=== PATIENT | male | born 1950 | race African-American/Black ===

== ENCOUNTER 2024-10-21 17:50 | Inpatient (IN) | payer MEDICARE, OTHER ==
[~2024-10-21] VITALS: Ht 177.8 cm; Wt 78.5 kg
[2024-10-21 18:09] LABS: BASOPHILS # (AUTO) 0.1 K/UL (0.0-0.2); BASOPHILS % (AUTO) 0.7 % (0.0-2.0); EOSINOPHILS # (AUTO) 0.4 K/uL (0.0-0.7); EOSINOPHILS % (AUTO) 5.2 % (0.0-7.0); HEMATOCRIT 42.1 % (36.7-47.1); HEMOGLOBIN 14.1 g/dL (12.5-16.3); LYMPHOCYTES % (AUTO) 24.5 % (20.5-51.5); MEAN CORPUSCULAR HEMOGLOBIN 31.8 uug (23.8-33.4); MEAN CORPUSCULAR HGB CONC 34 g/dL (32.5-36.3); MEAN CORPUSCULAR VOLUME 94.6 fL (73.0-96.2); MONOCYTES # (AUTO) 0.7 K/uL (0.1-1.30); MONOCYTES % (AUTO) 9.4 % (0.0-11.0); NEUTROPHILS # (AUTO) 4.8 K/uL (1.8-8.9); NEUTROPHILS % (AUTO) 60.2 % (38.5-71.5); PLATELET COUNT (AUTO) 276 K/uL (152-348); RED BLOOD CELL COUNT(AUTO) 4.45 MIL/uL (4.06-5.63); RED CELL DISTRIBUTION WIDTH 12.9 % (12.1-16.2)
[2024-10-21] MEDS ORDERED: SENN1TAB59 PO (18:09)
[2024-10-21] MEDS ORDERED: SERT-439 PO (18:09)
[2024-10-21] MEDS ORDERED: TAMS-3 PO (18:09)
[2024-10-21] MEDS ORDERED: MEMA10TA PO (18:09)
[2024-10-21 18:12] LABS: DIFFERENTIAL COMMENT 1
[2024-10-21 18:15] LABS: CALCIUM 9.8 mg/dL (8.5-10.1); CARBON DIOXIDE 25 mmol/L (21-32); CHLORIDE 109 mmol/L (98-107); CREATININE 1.2 mg/dL (0.6-1.3); GLUCOSE 80 mg/dL (74-106); POTASSIUM 4.1 mmol/L (3.5-5.1); SODIUM SERUM 146 mmol/L (136-145); UREA NITROGEN, BLOOD 22 mg/dL (7-18)
[2024-10-21 18:20] LABS: ACETAMINOPHEN < 2.0 ug/mL (10-30); ALANINE AMINOTRANSFERASE 62 U/L (16-63); ALBUMIN 3.8 g/dL (3.4-5.0); ALKALINE PHOSPHATASE 77 U/L (50-136); ASPARTATE AMINOTRANSFERASE 37 U/L (15-37); BILIRUBIN,DIRECT 0.1 mg/dL (0.0-0.2); BILIRUBIN,TOTAL 0.5 mg/dL (0.2-1.0); TOTAL PROTEIN, SERUM 7.7 g/dL (6.4-8.2)
[2024-10-21 18:25] LABS: ETHANOL < 3 MG/DL (0-10)
[2024-10-21] MEDS: OLANZAPINE 10 MG VIAL IM ONE (18:30)
[2024-10-21] MEDS ORDERED: MULT-213 PO (21:36)
[2024-10-21] MEDS ORDERED: LORA0.5T48 PO (21:36)
[2024-10-21] MEDS ORDERED: SENN8.6T19 PO (21:36)
[2024-10-21] MEDS ORDERED: FINA5TAB3 PO (21:36)
[2024-10-21 21:45] VITALS: BP 125/84; TEMP 97.8; O2SAT 97
[2024-10-21] MEDS ORDERED: MAGNESIUM HYDROXIDE 30 ML LIQUID UDC PO PRN (21:45)
[2024-10-21] MEDS ORDERED: MAG HYDROX/AL HYDROX/SIMETH 30 ML LIQUID UDC PO PRN (21:45)
[2024-10-22 08:03] VITALS: BP 137/96; TEMP 98.4; O2SAT 98
[2024-10-22] MEDS: SENNOSIDES/DOCUSATE SODIUM TABLET PO SCH (09:00)
[2024-10-22] MEDS: MULTIVITAMINS,THERAPEUTIC TABLET PO SCH (09:23)
[2024-10-22] MEDS: SENNOSIDES 1 TABLET PO SCH (09:23)
[2024-10-22] MEDS: MEMANTINE HCL 10 MG TABLET PO SCH (09:24)
[2024-10-22] MEDS: LORAZEPAM 1 MG TABLET PO PRN (16:14)
[2024-10-22 16:26] VITALS: BP 91/62; TEMP 98; O2SAT 100
[2024-10-22] MEDS: FINASTERIDE 5 MG TABLET PO SCH (18:00)
[2024-10-22 20:00] VITALS: BP 89/53; O2SAT 93
[2024-10-22] MEDS: TAMSULOSIN HCL 0.4 MG CAP.SR.24H PO SCH (21:20)
[2024-10-22] MEDS: TEMAZEPAM 7.5 MG CAPSULE PO PRN (21:20)
[2024-10-23 08:09] VITALS: BP 122/76; TEMP 98; O2SAT 98
[2024-10-23] MEDS ORDERED: risperiDONE 0.5 MG TABLET PO SCH (09:00)
[2024-10-23] MEDS: risperiDONE 1 MG TABLET PO SCH (09:24)
[2024-10-23] MEDS: SERTRALINE HCL 50 MG TABLET PO SCH (09:24)
[2024-10-23 15:29] VITALS: BP 102/66; TEMP 98; O2SAT 98
[2024-10-23 20:00] VITALS: BP 97/51; TEMP 98; O2SAT 98
[2024-10-23] MEDS: SENNOSIDES 1 TABLET PO SCH (20:34)
[2024-10-24 09:18] VITALS: BP 125/78; TEMP 98.6; O2SAT 99
[2024-10-24 17:05] VITALS: BP 96/59; TEMP 98.2; O2SAT 100
[2024-10-24 20:00] VITALS: BP 105/65; TEMP 98.3; O2SAT 97
[2024-10-25 11:02] VITALS: BP 119/54; TEMP 98; O2SAT 98
[2024-10-25 15:32] VITALS: BP 130/84; TEMP 98; O2SAT 98
[2024-10-25 19:48] VITALS: BP 132/69; TEMP 98.6; O2SAT 97
[2024-10-26 08:24] VITALS: BP 144/89; TEMP 98; O2SAT 98
[2024-10-26 15:04] VITALS: BP 120/69; TEMP 98; O2SAT 98
[2024-10-26 20:15] VITALS: BP 128/69; TEMP 98.2; O2SAT 100
[2024-10-27 08:17] VITALS: TEMP 97.6
[2024-10-27 20:00] VITALS: BP 100/76; TEMP 97.6; O2SAT 93
[2024-10-27] MEDS: TEMAZEPAM 7.5 MG CAPSULE PO PRN (20:15)
[2024-10-28 08:24] VITALS: BP 138/61; TEMP 98.1; O2SAT 98
[2024-10-28 17:16] VITALS: BP 142/81; TEMP 98.1; O2SAT 98
[2024-10-28 19:46] VITALS: BP 107/65; TEMP 97.9; O2SAT 96
[2024-10-28] MEDS: LORAZEPAM 1 MG TABLET PO PRN (20:36)
[2024-10-29 07:28] LABS: BASOPHILS # (AUTO) 0.1 K/UL (0.0-0.2); EOSINOPHILS # (AUTO) 0.4 K/uL (0.0-0.7); EOSINOPHILS % (AUTO) 6.3 % (0.0-7.0); HEMATOCRIT 38.8 % (36.7-47.1); HEMOGLOBIN 13.6 g/dL (12.5-16.3); LYMPHOCYTES # (AUTO) 1.5 K/uL (0.8-4.8); LYMPHOCYTES % (AUTO) 26.7 % (20.5-51.5); MEAN CORPUSCULAR HEMOGLOBIN 32.9 uug (23.8-33.4); MEAN CORPUSCULAR HGB CONC 35 g/dL (32.5-36.3); MEAN CORPUSCULAR VOLUME 93.9 fL (73.0-96.2); MONOCYTES # (AUTO) 0.6 K/uL (0.1-1.30); MONOCYTES % (AUTO) 11.1 % (0.0-11.0); NEUTROPHILS # (AUTO) 3.1 K/uL (1.8-8.9); NEUTROPHILS % (AUTO) 54.9 % (38.5-71.5); PLATELET COUNT (AUTO) 221 K/uL (152-348); RED BLOOD CELL COUNT(AUTO) 4.13 MIL/uL (4.06-5.63); RED CELL DISTRIBUTION WIDTH 12.8 % (12.1-16.2); WHITE BLOOD COUNT (AUTO) 5.7 K/uL (3.6-10.2)
[2024-10-29 08:15] LABS: ALANINE AMINOTRANSFERASE 50 U/L (16-63); ALBUMIN 3.4 g/dL (3.4-5.0); ALKALINE PHOSPHATASE 63 U/L (50-136); ASPARTATE AMINOTRANSFERASE 29 U/L (15-37); BILIRUBIN,TOTAL 0.8 mg/dL (0.2-1.0); CARBON DIOXIDE 25 mmol/L (21-32); CHLORIDE 105 mmol/L (98-107); CREATININE 1.1 mg/dL (0.6-1.3); GLUCOSE 88 mg/dL (74-106); MAGNESIUM 1.9 mg/dL (1.8-2.4); POTASSIUM 4.2 mmol/L (3.5-5.1); SODIUM SERUM 140 mmol/L (136-145); TOTAL PROTEIN, SERUM 7.4 g/dL (6.4-8.2); UREA NITROGEN, BLOOD 21 mg/dL (7-18)
[2024-10-29 08:18] VITALS: BP 112/49; TEMP 98.2; O2SAT 98
[2024-10-29 08:58] LABS: THYROID STIMULATING HORMONE 2.536 mIU/mL (0.358-3.740)
[2024-10-29] MEDS: SERTRALINE HCL 50 MG TABLET PO SCH (09:26)
[2024-10-29 16:08] VITALS: BP 119/52; TEMP 98; O2SAT 98
[2024-10-29 20:00] VITALS: BP 94/48; TEMP 98.8; O2SAT 97
[2024-10-29 20:34] VITALS: BP 121/62
[2024-10-30 08:02] VITALS: BP 105/84; TEMP 98.2; O2SAT 100
[2024-10-30 15:41] VITALS: BP 114/62; TEMP 98; O2SAT 100
[2024-10-30 20:00] VITALS: BP 120/76; TEMP 98.1; O2SAT 97
[2024-10-31 08:20] VITALS: BP 140/61; TEMP 98.3; O2SAT 98
[2024-10-31 16:20] VITALS: BP 125/61; TEMP 98.2; O2SAT 100
[2024-10-31 19:43] VITALS: BP 137/66; TEMP 98.2; O2SAT 97
[2024-10-31] MEDS: ATORVASTATIN 10 MG TABLET PO SCH (21:10)
[2024-11-01 08:56] VITALS: BP 141/68; TEMP 98.3; O2SAT 98
[2024-11-01 16:14] VITALS: BP 99/50; TEMP 98.1; O2SAT 97
[2024-11-01 20:00] VITALS: BP 120/80
[2024-11-02 08:24] VITALS: BP 148/55; TEMP 98; O2SAT 98
[2024-11-02 16:24] VITALS: BP 106/60; TEMP 98.2; O2SAT 97
[2024-11-02] MEDS: ACETAMINOPHEN 325 MG TABLET PO PRN (16:54)
[2024-11-02 20:00] VITALS: BP 101/78; TEMP 95; O2SAT 99
[2024-11-03 08:00] VITALS: BP 99/63; TEMP 97.8; O2SAT 98
[2024-11-03 16:00] VITALS: BP 116/72; TEMP 97.6; O2SAT 97
[2024-11-03 20:23] VITALS: BP 112/66; TEMP 98; O2SAT 96
[2024-11-04 08:00] VITALS: BP 125/48; TEMP 97.6; O2SAT 98
[2024-11-04] MEDS: risperiDONE 1 MG TABLET PO SCH (08:35)
[2024-11-04] MEDS ORDERED: risperiDONE 1 MG TABLET PO SCH (17:00)
== END 2024-11-04 15:15 | DRG 885 ==
LOC: ER 17:50 → GPS 21:27
PROVIDERS: ADMIT Psychiatry & Neurology Psychiatry; ATTEND Internal Medicine
DX: F20.0 Paranoid schizophrenia (principal); F03.911 Unspecified dementia, unspecified severity, with agitation; F03.93 Unspecified dementia, unspecified severity, with mood disturbance; R45.851 Suicidal ideations; N40.0 Benign prostatic hyperplasia without lower urinary tract symptoms; Z95.0 Presence of cardiac pacemaker; Z79.899 Other long term (current) drug therapy; M62.81 Muscle weakness (generalized); E78.5 Hyperlipidemia, unspecified; R26.89 Other abnormalities of gait and mobility; R79.89 Other specified abnormal findings of blood chemistry
CPT/HCPCS: 36415; 71045; 83735; 84100; 84443; 85025; A4606; A4663; G0480; J2358